=== PATIENT | female | born 1990 | race Two or more races ===

== ENCOUNTER 2022-05-10 15:13 | Emergency (ER) | payer BC, MEDICAID ==
[~2022-05-10] VITALS: Ht 152.4 cm; Wt 68.0 kg
[2022-05-10] MEDS ORDERED: MORPHINE SULFATE 4 MG/ML CPJ (NOT FOR IM USE) IV STA (15:30)
[2022-05-10] MEDS ORDERED: ONDANSETRON HCL 4MG/2ML INJ IV STA (15:30)
[2022-05-10 16:44] VITALS: BP 124/87
[2022-05-10 16:47] LABS: BASOPHILS % 0.8 % (0.0-2.0); EOSINOPHILS % 1.5 % (0.0-5.0); HEMATOCRIT. 25.9 % (36.0-48.0); HEMOGLOBIN. 8.2 g/dL (12.0-16.0); LYMPHOCYTES % 28.3 % (20.0-50.0); MEAN PLATELET VOLUME 7.4 fl (7.4-10.4); MONOCYTES % 7.2 % (2.0-8.0); NEUTROPHILS % 62.2 % (40.0-76.0); PLATELET 420 x1000/uL (130-400); RED BLOOD CELL COUNT 3.55 mill/uL (4.2-5.4)
[2022-05-10 16:57] LABS: CHLORIDE 108 mEq/L (98-107)
[2022-05-10 17:05] LABS: INR 1.1; PROTHROMBIN TIME 12.1 sec (9.6-11.0)
[2022-05-10 17:11] LABS: HCG SCREEN NEGATIVE
[2022-05-10 17:49] LABS: CLARITY URINE CLOUDY (CLEAR); COLOR URINE YELLOW (YELLOW); KETONES URINE NEGATIVE (NEGATIVE); LEUKOCYTE ESTERASE URINE 2+ (NEGATIVE); NITRITE URINE NEGATIVE (NEGATIVE); OCCULT BLOOD URINE NEGATIVE (NEGATIVE); PH URINE 6.5 (4.5-8.0); PROTEIN URINE NEGATIVE (NEGATIVE); SPECIFIC GRAVITY URINE 1.024 (1.005-1.030); UROBILINOGEN URINE 0.2 E.U./dL (0.2-1.0)
[2022-05-10] MEDS ORDERED: IOHEXOL-300 100 ML BOTTLE ONE (17:53)
[2022-05-10] MEDS ORDERED: ONDA4TAB50 MT (19:04)
[2022-05-10] MEDS ORDERED: ACET-2708 MT (19:04)
== END 2022-05-10 20:16 | disposition home or self-care (01) ==
LOC: ER 15:13
DX: I87.1 Compression of vein (principal); N83.202 Unspecified ovarian cyst, left side; Z98.890 Other specified postprocedural states
CPT/HCPCS: 36415; 74177; 80053; 81003; 81025; 83690; 84703; 85025; 85610; 96374; 96375; 99285; J2270; J2405; Q9967; Z7610